=== PATIENT | male | born 1975 | race Caucasian/White ===

== ENCOUNTER 2021-01-09 22:01 | Emergency (ER) | payer BC, OTHER ==
[~2021-01-09] VITALS: Ht 167.6 cm; Wt 77.1 kg
[~2021-01-09 22:01] MED LIST: ADVIL COLD & S1 EAC1; ALLOPURINOL 10100 M1 PO; CHERATUSSIN DA480 ML PO; HYDROCODON-ACE1 EAC7; PEPCID40 MG PO; ZPAK PO
[2021-01-09] MEDS ORDERED: APAP W/CODEINE1 TA2 PO (22:47)
[2021-01-09] MEDS ORDERED: SSD CREAM 1% 5050 GM TOP (22:47)
[2021-01-09 23:25] VITALS: BP 140/76
== END 2021-01-09 23:25 | disposition home or self-care (01) ==
LOC: ER 22:01
DX: T20.26XA Burn of second degree of forehead and cheek, initial encounter (principal); T24.219A Burn of second degree of unspecified thigh, initial encounter; T20.24XA Burn of second degree of nose (septum), initial encounter; T22.111A Burn of first degree of right forearm, initial encounter; J45.909 Unspecified asthma, uncomplicated; Z79.899 Other long term (current) drug therapy; W40.9XXA Explosion of unspecified explosive materials, initial encounter; Y93.89 Activity, other specified; Y92.89 Other specified places as the place of occurrence of the external cause; Y99.8 Other external cause status